=== PATIENT | female | born 1955 | race Caucasian/White ===

== ENCOUNTER 2021-12-21 13:46 | Outpatient (CLI) | payer MEDICARE, OTHER | END 2021-12-21 13:47 | disposition home or self-care (01) | LOC: CSHMAMMO 13:46 | PROVIDERS: ATTEND Physician Assistant | DX: Z12.31 Encounter for screening mammogram for malignant neoplasm of breast (principal); M81.0 Age-related osteoporosis without current pathological fracture; Z78.0 Asymptomatic menopausal state | CPT/HCPCS: 77063; 77067; 77080 ==

== ENCOUNTER 2023-09-13 14:50 | Outpatient (CLI) | payer MEDICARE, BC | END 2023-09-13 14:51 | disposition home or self-care (01) | LOC: CSHMAMMO 14:50 | PROVIDERS: ATTEND Physician Assistant | DX: Z12.31 Encounter for screening mammogram for malignant neoplasm of breast (principal) | CPT/HCPCS: 77063; 77067 ==

== ENCOUNTER 2025-03-05 13:29 | Outpatient (CLI) | payer MEDICARE | END 2025-03-05 13:30 | disposition home or self-care (01) | LOC: CSHRAD 13:29 | PROVIDERS: ATTEND Physician Assistant | DX: M24.211 Disorder of ligament, right shoulder (principal) ==

== ENCOUNTER 2025-03-19 12:52 | Outpatient (CLI) | payer MEDICARE | END 2025-03-19 12:53 | disposition home or self-care (01) | LOC: CSHULT 12:52 | PROVIDERS: ATTEND Physician Assistant | DX: R14.0 Abdominal distension (gaseous) (principal) | CPT/HCPCS: 76700 ==

== ENCOUNTER 2025-04-03 12:54 | Outpatient (CLI) | payer MEDICARE | END 2025-04-03 12:55 | disposition home or self-care (01) | LOC: CSHCT 12:54 | PROVIDERS: ATTEND Physician Assistant | DX: Z12.2 Encounter for screening for malignant neoplasm of respiratory organs (principal); Z87.891 Personal history of nicotine dependence | CPT/HCPCS: 71271 ==